=== PATIENT | female | born 1975 | race Caucasian/White ===

== ENCOUNTER 2023-01-21 01:28 | Emergency (ER) | payer BC, OTHER ==
[~2023-01-21] VITALS: Ht 172.7 cm; Wt 139.3 kg
[2023-01-21 01:54] VITALS: BP_SYST 168
--- NOTE | 2023-01-21 01:57 | NUR ---
Patient triaged and placed in waiting room. VS checked and patient appears in no acute distress at this time. Accompanied by family, awaiting available bed, and MD notified of need for MSE.
--- NOTE | 2023-01-21 02:10 | NUR ---
ER in waiting room examining patient.
--- NOTE | 2023-01-21 02:19 | NUR ---
Patient wheeled to [facility] for further treatment and evaluation
[2023-01-21] MEDS ORDERED: KETOROLAC TROMETHAMINE 30 MG VIAL IM ONE (02:30)
--- NOTE | 2023-01-21 02:36 | NUR ---
Patient says it is ok to give medication. She denies .
--- NOTE | 2023-01-21 02:36 | NUR ---
Patient has right food pain. She has PMH infection. The foot swelling started yesterday. Patient denies trauma, tripping on something. She says it hurts her.
[2023-01-21 02:47] LABS: BASOPHILS # (AUTO) 0.1 K/uL (0.0-0.2); BASOPHILS % (AUTO) 0.5 % (0.0-2.0); EOSINOPHILS # (AUTO) 0.1 K/uL (0.0-0.4); HEMATOCRIT 29.2 % (36-48); HEMOGLOBIN 8.7 g/dL (12.0-16.0); LYMPHOCYTES # (AUTO) 2.4 K/uL (1.0-5.5); LYMPHOCYTES % (AUTO) 18.5 % (20.5-51.5); MEAN CORPUSCULAR HEMOGLOBIN 18 pg (27-31); MEAN CORPUSCULAR HGB CONC 30 % (32-36); MEAN CORPUSCULAR VOLUME 61 fL (79.0-98.0); MONOCYTES # (AUTO) 1.3 K/uL (0.0-1.0); MONOCYTES % (AUTO) 9.6 % (1.7-9.3); NEUTROPHILS # (AUTO) 9.2 K/uL (1.8-7.7); NEUTROPHILS % (AUTO) 70.4 % (40.0-70.0); PLATELET COUNT (AUTO) 285 K/uL (130-430); RED BLOOD CELL COUNT(AUTO) 4.75 MIL/uL (4.2-6.2)
[2023-01-21 04:08] LABS: ERYTHROCYTE SEDIMENTATION RATE 15 MM/HR (0-20)
[2023-01-21 04:26] LABS: C-REACTIVE PROTEIN QUANT 1.3 mg/dL (0-0.5); CREATININE 0.78 mg/dL (0.55-1.30)
[2023-01-21 04:42] VITALS: BP_SYST 124
[2023-01-21] MEDS ORDERED: AUG875 PO (04:44)
[2023-01-21] MEDS ORDERED: HYDR-3917 PO (04:45)
--- NOTE | 2023-01-21 04:47 | NUR ---
Patient given written and verbal discharge instructions and verbalizes understanding. ER MD discussed with patient the results and treatment provided. Patient in stable condition. ID arm band removed. IV catheter removed intact and dressing applied, no active bleeding. Rx of meds given. Patient educated on pain management and to follow up with PMD. Pain Scale . Opportunity for questions provided and answered. Medication side effect fact sheet provided.
== END 2023-01-21 04:44 | disposition home or self-care (01) ==
LOC: SED 01:28
DX: L03.115 Cellulitis of right lower limb (principal); M25.571 Pain in right ankle and joints of right foot; E11.9 Type 2 diabetes mellitus without complications; Z88.0 Allergy status to penicillin; Z88.1 Allergy status to other antibiotic agents; Z79.899 Other long term (current) drug therapy
CPT/HCPCS: 99284; 80048; 85025; 85651; 86140; 36415; 73610; 96372; J1885